=== PATIENT | female | born 1965 ===

== ENCOUNTER 2018-02-06 21:45 | Emergency (ER) | payer BC ==
--- NOTE | 2018-02-06 22:11 | EDM.PDOC ---
ED HPI GENERAL MEDICAL PROBLEM - General Chief Complaint: Upper Extremity Injury/Pain Stated Complaint: PAIN LT WRIST Time Seen by Provider: 02/06/18 22:02 Source of Information: Reports: Patient History Limitations: Reports: No Limitations - History of Present Illness INITIAL COMMENTS - FREE TEXT/NARRATIVE: HISTORY AND PHYSICAL: History of present illness: [Patient comes to the emergency room complaining of left wrist pain. She states that she was dancing in her kitchen this evening when she fell landing on her left wrist. Complains of immediate pain and swelling. She's noticed deformity to her left wrist. Occurred 1 hour prior to arrival in the ER. She has not taken any medication for her pain. Admits to drinking 3-4 alcoholic beverages this evening. History of HTN.] Review of systems: As per history of present illness and below otherwise all systems reviewed and negative. Past medical history: As per history of present illness and as reviewed below otherwise noncontributory. Surgical history: As per history of present illness and as reviewed below otherwise noncontributory. Social history: No reported history of drug or alcohol abuse. Family history: As per history of present illness and as reviewed below otherwise noncontributory. Physical exam: HEENT: Atraumatic, normocephalic. Extremities: Deformity appreciated to dorsum of left wrist. Is tender with palpation. Mild swelling and bruising noted. Cap refill less than 2 seconds. Has full motor Atraumatic, negative for cords or calf pain. Neurovascular unremarkable. Neuro: Awake, alert, oriented. Motor and sensory unremarkable throughout. Exam nonfocal. Diagnostics: [Left wrist x-ray] Impression: [L radial head fracture] Plan: [Patient is placed in a thumb spica splint that is made by the RN using Ortho- Glass. Encouraged patient to alternate Tylenol with ibuprofen as needed for discomfort, rest, ice and elevation. Referral is made to local orthopedic clinic. She is offered a referral to orthopedist in [place] as our local orthopedic surgeon is out of the office for the next several days. She declines stating she would like to follow-up locally. She declines prescription for hydrocodone.] Definitive disposition and diagnosis as appropriate pending reevaluation and review of above. left wrist Pain Score (Numeric/FACES): 6 - Related Data Allergies Allergy/AdvReac Type Severity Reaction Status Date / Time No Known Allergies Allergy Verified 02/06/18 21:54 Home Meds: Home Meds Fish Oil/[place]-3 Fatty Acids [Fish Oil 1,000 MG] 2 tab PO DAILY 11/07/15 [ History] Multivitamin [One Daily] 1 tab PO DAILY 11/07/15 [History] amLODIPine Besylate/Benazepril [Amlodipine-Benazepril 10-20 MG] 1 tab PO DAILY 11/07/15 [History] Past Medical History HEENT History: Reports: None Cardiovascular History: Reports: Hypertension Respiratory History: Reports: None Genitourinary History: Reports: None NEON GLASS BLOWER History: Reports: None Musculoskeletal History: Reports: None Neurological History: Reports: None Psychiatric History: Reports: None Endocrine/Metabolic History: Reports: Obesity/BMI 30+ Hematologic History: Reports: None Immunologic History: Reports: None Oncologic (Cancer) History: Reports: None Dermatologic History: Reports: None - Infectious Disease History Infectious Disease History: Reports: Mumps - Past Surgical History Head Surgeries/Procedures: Reports: None HEENT Surgical History: Reports: None GI Surgical History: Reports: Bariatric Procedure Social & Family History - Family History Family Medical History: Noncontributory - Tobacco Use Smoking Status *Q: Never Smoker - Alcohol Use Days Per Week of Alcohol Use: 2 Number of Drinks Per Day: 3 Total Drinks Per Week: 6 - Recreational Drug Use Recreational Drug Use: No Review of Systems - Review of Systems Review Of Systems: ROS reveals no pertinent complaints other than HPI. ED EXAM, GENERAL - Physical Exam Exam: See Below Course - Vital Signs Last Recorded V/S: Last Vital Signs Temp 96.8 F 02/06/18 21:52 Pulse 70 02/06/18 21:52 Resp 16 02/06/18 21:52 BP 127/57 L 02/06/18 21:52 Pulse Ox 98 02/06/18 21:52 - Orders/Labs/Meds Orders: Active Orders 24 hr Category Date Time Status Wrist Comp Min 3V Lt [CR] Stat Exams 02/06/18 22:02 Taken Departure - Departure Time of Disposition: 22:40 Disposition: Home, Self-Care 01 Condition: Good Clinical Impression: Closed fracture of radius - Discharge Information Referrals: Bobbi Silverio DO [Primary Care Provider] - Forms: ED Department Discharge Additional Instructions: The following information is given to patients seen in the emergency department who are being discharged to home. This information is to outline your options for follow-up care. We provide all patients seen in our emergency department with a follow-up referral. The need for follow-up, as well as the timing and circumstances, are variable depending upon the specifics of your emergency department visit. If you don't have a primary care physician on staff, we will provide you with a referral. We always advise you to contact your personal physician following an emergency department visit to inform them of the circumstance of the visit and for follow-up with them and/or the need for any referrals to a consulting specialist. The emergency department will also refer you to a specialist when appropriate. This referral assures that you have the opportunity for follow-up care with a specialist. All of these measure are taken in an effort to provide you with optimal care, which includes your follow-up. Under all circumstances we always encourage you to contact your private physician who remains a resource for coordinating your care. When calling for follow-up care, please make the office aware that this follow-up is from your recent emergency room visit. If for any reason you are refused follow-up, please contact the [facility] emergency department at and asked to speak to the emergency department charge nurse. [facility] Professional Building [address] [place] [address], [address] [place] [address] Call the above clinic Thursday morning to schedule follow-up appointment for the next couple of days. Tylenol alternating with ibuprofen as needed for discomfort, rest, ice, elevation. Return to ER as needed as discussed.
[2018-02-06 23:07] VITALS: BP 112/73
--- NOTE | 2018-02-08 12:05 | CR ---
EXAM DATE: 02/06/18 PATIENT'S AGE: 52 Patient: MICHEL ELLISON Facility: [place], [place] Site . Site : 1965 Study: XRay Extremity Left WRIST [id number] 10:28:39 PM Ordering Physician: Doctor Camara Final Report: INDICATION: Fall today onto left wrist, pain since TECHNIQUE: Wrist radiograph 3 views left COMPARISON: None FINDINGS: Bones: A comminuted intra-articular fracture of the distal radius is present. The distal radial articular surface is angulated dorsally by 38 degrees. Joints: The radiocarpal, carpal, and carpometacarpal joints are unremarkable in appearance. Soft tissues: Unremarkable. No radiopaque foreign bodies are seen. IMPRESSION: 1. A comminuted intra-articular fracture of the distal radius is present. The distal radial articular surface is angulated dorsally by 38 degrees. Dictated by Raymundo Nunez MD @ 02/06/2018 10:50:07 PM Dictated by: Raymundo Nunez MD @ 02/06/2018 22:50:12 (Electronic Signature) Report Signed by Proxy. BELLA
== END 2018-02-06 23:00 | disposition home or self-care (01) ==
LOC: MW.ED 21:45
DX: S52.122A Displaced fracture of head of left radius, initial encounter for closed fracture (principal); E66.9 Obesity, unspecified; I10 Essential (primary) hypertension; Z98.84 Bariatric surgery status; W18.30XA Fall on same level, unspecified, initial encounter; Y93.41 Activity, dancing; Z79.899 Other long term (current) drug therapy; Z68.38 Body mass index [BMI] 38.0-38.9, adult
CPT/HCPCS: 29125; 73110; 99283; A4566

== ENCOUNTER 2018-02-15 07:25 | Day surgery (SDC) | payer BC ==
[~2018-02-15 07:25] MED LIST: Lactated Ringers 1,000 ML IV SCH
[2018-02-15] MEDS ORDERED: Bupivacaine 0.5% 10 ML SDV ONE (07:39)
[2018-02-15] MEDS ORDERED: Acetaminophen/HYDROcodone 325-5 MG Tab PO PRN (08:00)
[2018-02-15] MEDS ORDERED: ceFAZolin 2 GM in Premix Bag 1 BAG IV SCH (08:00)
[2018-02-15] MEDS ORDERED: Propofol 200 MG/20 ML SDV ONE (08:20)
[2018-02-15] MEDS ORDERED: Midazolam 1 MG/ML 2 ML SDV ONE (08:20)
[2018-02-15] MEDS ORDERED: Dexamethasone 4 MG/ML 5 ML MDV ONE (08:20)
[2018-02-15] MEDS ORDERED: fentaNYL 250 MCG/5 ML SDV ONE (08:20)
[2018-02-15] MEDS ORDERED: Ondansetron 4 MG/2 ML SDV ONE (08:20)
[2018-02-15] MEDS ORDERED: ceFAZolin/Dextrose,Iso-Osmotic 2 GM/50 ML Duplex Bag IV ONE (08:35)
--- NOTE | 2018-02-15 09:08 | PCM.PREANE ---
Preanesthetic Assessment - Anesthesia/Transfusion/Family Hx Anesthesia History: Prior Anesthesia Without Reaction Transfusion History: No Prior Transfusion(s) - Review of Systems General: No Symptoms Pulmonary: No Symptoms Cardiovascular: No Symptoms Gastrointestinal: No Symptoms Neurological: No Symptoms Other: Reports: None - Physical Assessment NPO Status Date: 02/14/18 NPO Status Time: 22:00 O2 Sat by Pulse Oximetry: 97 Respiratory Rate: 16 Vital Signs: Last Vital Signs Temp 98.1 F 02/15/18 07:51 Pulse 61 02/15/18 07:51 Resp 16 02/15/18 07:51 BP 144/97 H 02/15/18 07:51 Pulse Ox 97 02/15/18 07:51 Height: 5 ft 8 in Weight: 102.058 kg ASA Class: 2 Mental Status: Alert & Oriented x3 Airway Class: Mallampati = 2 Dentition: Reports: Normal Dentition Thyro-Mental Finger Breadths: 3 Mouth Opening Finger Breadths: 3 ROM/Head Extension: Full Lungs: Clear to Auscultation, Normal Respiratory Effort Cardiovascular: Regular Rate, Regular Rhythm - Lab Values: Laboratory Last Values Urine HCG, Qual NEGATIVE (NEGATIVE) 02/15/18 07:29 - Allergies Allergies/Adverse Reactions: Allergies Allergy/AdvReac Type Severity Reaction Status Date / Time No Known Allergies Allergy Verified 02/10/18 14:36 - Acknowledgements Anesthesia Type Planned: General Anesthesia (ETT) Pt an Appropriate Candidate for the Planned Anesthesia: Yes Alternatives and Risks of Anesthesia Discussed w Pt/Guardian: Yes Pt/Guardian Understands and Agrees with Anesthesia Plan: Yes PreAnesthesia Questionnaire HEENT History: Other HEENT History: wears glasses Cardiovascular History: Reports: Hypertension (Rx controlled) Respiratory History: Reports: None Gastrointestinal History: Reports: None Genitourinary History: Reports: None AIR/OCEAN EXPORT CLERK History: Reports: None Musculoskeletal History: Reports: None Neurological History: Reports: None Psychiatric History: Reports: None Endocrine/Metabolic History: Reports: Obesity/BMI 30+ Hematologic History: Reports: None Immunologic History: Reports: None Oncologic (Cancer) History: Reports: None Dermatologic History: Reports: Other (See Below) Other Dermatologic History: rosacea - Infectious Disease History Infectious Disease History: Reports: Mumps - Past Surgical History Head Surgeries/Procedures: Reports: None HEENT Surgical History: Reports: None GI Surgical History: Reports: Bariatric Procedure (Gastric Bypass), Colonoscopy Female Surgical History: Reports: Breast Implant Other Female Surgeries/Procedures: lala breast augmentation - SUBSTANCE USE Smoking Status *Q: Former Smoker Tobacco Use Within Last Twelve Months: No Days Per Week of Alcohol Use: 2 Number of Drinks Per Day: 3 Total Drinks Per Week: 6 Recreational Drug Use History: No - HOME MEDS Home Medications: Home Meds Fish Oil/[place]-3 Fatty Acids [Fish Oil 1,000 MG] 2 tab PO DAILY 11/07/15 [ History] Multivitamin [One Daily] 1 tab PO DAILY 11/07/15 [History] amLODIPine Besylate/Benazepril [Amlodipine-Benazepril 10-20 MG] 1 tab PO DAILY 11/07/15 [History] metroNIDAZOLE [metroNIDAZOLE 0.75% Gel] 1 applic TOP ASDIRECTED 02/10/18 [ History] - CURRENT (IN HOUSE) MEDS Current Meds: Current Medications Hydrocodone Bitart/Acetaminophen ([place] 325-5 Mg) 1 - 2 tab PO Q4H PRN PRN Reason: Pain Cefazolin Sodium/Dextrose 2 gm (/ Premix) 50 mls @ 100 mls/hr IV ONCALL LARRY Lactated Ringer's (Ringers, Lactated) 1,000 mls @ 100 mls/hr IV ASDIRECTED [facility] Last Admin: 02/15/18 07:49 Dose: 100 mls/hr Discontinued Medications Bupivacaine HCl (Sensorcaine-Mpf 0.5%) Confirm Administered Dose 10 ml .ROUTE .STK-MED ONE Stop: 02/15/18 07:40 Cefazolin Sodium/Dextrose (Ancef) Confirm Administered Dose 2 gm IV .STK-MED ONE Stop: 02/15/18 08:36 Dexamethasone (Dexamethasone) Confirm Administered Dose 20 mg .ROUTE .STK-MED ONE Stop: 02/15/18 08:21 Fentanyl (Sublimaze) Confirm Administered Dose 250 mcg .ROUTE .STK-MED ONE Stop: 02/15/18 08:21 Lidocaine HCl (Xylocaine-Mpf 1%) Confirm Administered Dose 5 ml .ROUTE .STK-MED ONE Stop: 02/15/18 08:21 Midazolam HCl (Versed 1 Mg/Ml) Confirm Administered Dose 2 mg .ROUTE .STK-MED ONE Stop: 02/15/18 08:21 Ondansetron HCl (Zofran) Confirm Administered Dose 4 mg .ROUTE .STK-MED ONE Stop: 02/15/18 08:21 Propofol (Diprivan 20 Ml) Confirm Administered Dose 200 mg .ROUTE .STK-MED ONE Stop: 02/15/18 08:21
[2018-02-15] MEDS ORDERED: Succinylcholine 200 MG/10 ML MDV ONE (09:10)
[2018-02-15] MEDS ORDERED: Rocuronium 10 MG/ML 10 ML Syringe ONE (09:10)
[2018-02-15] MEDS ORDERED: HYDROmorphone 2 MG/ML SDV ONE (11:36)
--- NOTE | 2018-02-15 11:47 | PCM.OPNOTE ---
- General Post-Op/Procedure Note Date of Surgery/Procedure: 02/15/18 Operative Procedure(s): ORIF left distal radius, 4 part Post-Op Diagnosis: left distal radius fracture, 4 part intra-articular Anesthesia Technique: General ET Tube Primary Surgeon: Radha Mayberry Hydrogen Treater: Ángela Gandhi in mLs: 10 Condition: Good Free Text/Narrative:: tt=64 min #[id number]
[2018-02-15] MEDS: fentaNYL 100 MCG/2 ML SDV IVPUSH PRN ×4 (12:10→12:36)
--- NOTE | 2018-02-15 12:22 | PCM.POSTAN ---
POST ANESTHESIA ASSESSMENT - MENTAL STATUS Mental Status: Alert, Oriented - RESPIRATORY Respiratory Status: Respiratory Rate WNL, Airway Patent, O2 Saturation Stable - CARDIOVASCULAR CV Status: Pulse Rate WNL, Blood Pressure Stable - GASTROINTESTINAL GI Status: No Symptoms - POST OP HYDRATION Hydration Status: Adequate & Stable
[2018-02-15] MEDS ORDERED: Acetaminophen 1,000 MG in Premix Bag 1 BAG IV ONE (12:53)
--- NOTE | 2018-02-15 13:39 | PCM48HPAN ---
Post Anesthesia Note - EVALUATION WITHIN 48HRS OF ANESTHETIC Vital Signs in Normal Range: Yes Patient Participated in Evaluation: Yes Respiratory Function Stable: Yes Airway Patent: Yes Cardiovascular Function Stable: Yes Hydration Status Stable: Yes Pain Control Satisfactory: Yes Nausea and Vomiting Control Satisfactory: Yes Mental Status Recovered: Yes Resp Rate: 14
[2018-02-15 14:43] VITALS: BP 143/79
--- NOTE | 2018-02-15 16:31 | CR ---
EXAMINATION: Left wrist HISTORY: ORIF COMPARISON: CT dated 02/09/2018 TECHNIQUE: 4 views FINDINGS/IMPRESSION: Screw and plate hardware is noted fixating a distal radius fracture. Position an d alignment appear near anatomic.
--- NOTE | 2018-02-16 08:15 | OR ---
SURGEON: Radha Mayberry MD DATE OF PROCEDURE: 02/15/2018 PREOPERATIVE DIAGNOSIS: Left distal radius fracture, 4 part, intra-articular. POSTOPERATIVE DIAGNOSIS: Left distal radius fracture, 4 part, intra-articular. PROCEDURE: Open reduction and internal fixation left 4 part intra-articular distal radius fracture. SECURITY INTELLIGENCE ANALYST: Ángela Gandhi PA-C ANESTHESIA: General. ESTIMATED BLOOD LOSS: 10 mL. TOURNIQUET TIME: 64 minutes. COMPLICATIONS: None. DVT PROPHYLAXIS: PAS boots to bilateral lower extremities. IMPLANTS USED: See implant record. BRIEF HISTORY: Shaina is a 52-year-old right-hand dominant female, who injured her left wrist after falling. X-rays and CT scan showed a comminuted intra-articular fracture of the left distal radius with shortening and angulation. Due to the position of the fracture, I did recommend surgical intervention. The risks and goals of procedure were discussed with the patient and were documented preoperatively. She agreed to proceed. DESCRIPTION OF PROCEDURE: The patient was properly identified and brought to the operating room. She was transferred from the OR cart and placed on the operating table in supine position. General anesthesia was administered. After adequate anesthesia was obtained, a well-padded tourniquet was applied to the left upper extremity. The left upper extremity was then prepped in standard fashion using ChloraPrep solution. It was then sterilely draped. A time-out was performed to ensure correct site and procedure. Preoperative antibiotics were given. The surgical site had been marked preoperatively. An Esmarch was used to exsanguinate the left upper extremity and the tourniquet was inflated to 200 mmHg. An incision was made over the volar aspect of the wrist, centered over the FCR tendon. Subcutaneous tissues were incised. Electrocautery was used to maintain hemostasis. The FCR tendon was incised. It was brought in a radial direction. The floor of the tendon sheath was then incised. The FPL was identified and retracted. The pronator quadratus was identified. This had been damaged, due to the position of the fracture. The pronator was incised along the radial border. A periosteal elevator was used to remove the pronator from the bone. The fracture was identified. It was opened, and saline was used to copiously irrigate and remove the fracture hematoma. A [place] elevator was then placed into the fracture site, and the dorsal angulation was improved. C-arm was used to guide positioning. We were able to bring the radius out to length as well. There was some comminution at the radial styloid, which had been noted on the preoperative CT scan. A K-wire was passed into the radial styloid. This was then reduced and passed past the fracture site. Good provisional fixation was obtained in both the AP and lateral planes. The wide short plate was then placed along the volar aspect of the distal radius. Its position was held in place with K-wires. Its position was checked in both AP and lateral planes and felt to be acceptable. A 2.7 mm nonlocking screw was placed in the oblong hole proximally. The distal screw hole was then drilled. This was placed in a subchondral position. Prior to final tightening of the locking distal screw, the proximal screw was released. This allowed the distal fragment to be pulled to the plate to improve the dorsal angulation. The distal screw was then tightened, followed by the proximal one. The position of the fracture was again checked in the AP and lateral planes and felt to be acceptable. The radial styloid was then held in a reduced position, as the radial styloid screw was passed. We were able to get good purchase within the radial styloid with good reapproximation of the position of the radial styloid. The remainder of the distal holes were filled using locking screws. I chose not to place a screw along the proximal and ulnar aspect of the plate, as I did not want to cause any impingement on the sigmoid notch. 2.7 mm nonlocking screws were also placed proximally to finish the fixation. Final C-arm images confirmed acceptable reduction of the fracture with good caodaism of the radial length and inclination. The dorsal tilt was improved to a neutral position. Screw lengths appeared appropriate. Provisional K-wire fixation was removed. The wound was then copiously irrigated with saline solution. The pronator quadratus was closed over the plate using 0 Vicryl. The tourniquet was then deflated. No significant bleeding was noted. 3-0 Vicryl was used to close the subcutaneous tissues and the skin was closed with a running 4-0 Monocryl suture. Steri- Strips and Benzoin were placed. Xeroform gauze was placed over the wound, and a bulky dressing was applied. She was placed in a well-padded volar splint. She was awakened from her anesthetic and transferred back to the operating room cart. She was brought to recovery room in stable condition. All needle and sponge counts were correct. INDERJIT / GABRIEL /[id number]
== END 2018-02-15 14:08 | disposition home or self-care (01) ==
LOC: MW.SDS 07:25
PROVIDERS: ATTEND Orthopaedic Surgery
DX: S52.572A Other intraarticular fracture of lower end of left radius, initial encounter for closed fracture (principal); I10 Essential (primary) hypertension; E66.9 Obesity, unspecified; W19.XXXA Unspecified fall, initial encounter; Z79.899 Other long term (current) drug therapy; Z68.34 Body mass index [BMI] 34.0-34.9, adult; Z98.84 Bariatric surgery status; Z87.891 Personal history of nicotine dependence
CPT/HCPCS: 25609; 76000; 81025; J0330; J0690; J1100; J1170; J2250; J2405; J3010; J7120; 01830; C1713; J2704

== ENCOUNTER 2019-08-29 08:28 | Emergency (ER) | payer BC ==
--- NOTE | 2019-08-29 08:37 | EDM.PDOC ---
ED HPI GENERAL MEDICAL PROBLEM - General Stated Complaint: WOUND ON LT LEG Time Seen by Provider: 08/29/19 08:48 Source of Information: Reports: Patient History Limitations: Reports: No Limitations - History of Present Illness INITIAL COMMENTS - FREE TEXT/NARRATIVE: HISTORY AND PHYSICAL: History of present illness: Patient is a 54-year-old female who presents to the emergency room with complaints of an open sore to her left posterior thigh. She states over the past several years she has noticed a small lipoma or cyst to the left posterior thigh, site where she now has an open sore. She states that she has had a provider looked at. Lipoma previously and states there was no concern with this. She states over the past couple weeks she thought that the area appeared semi-reddened in appearance and thought that it looked like it was "coming to a head". Over the past few days she noticed almost an abscess-like appearance and it had "busted on its own" yesterday. The site has been draining serosanguineous fluid and does not appear to be improving. She tried to call her primary care provider but was not able to get in in a timely manner. Patient denies any fever, chills, headache, change in vision, syncope or near syncope. Denies any chest pain, back pain, shortness of breath or cough. Denies any abdominal pain, nausea, vomiting, diarrhea, constipation or dysuria. Has not noted any blood in urine or stool. Patient has been eating and drinking appropriately. Patient states she is otherwise healthy and has no past medical history of MRSA or diabetes. Review of systems: As per history of present illness and below otherwise all systems reviewed and negative. Past medical history: As per history of present illness and as reviewed below otherwise noncontributory. Surgical history: As per history of present illness and as reviewed below otherwise noncontributory. Social history: See social history for further information Family history: As per history of present illness and as reviewed below otherwise noncontributory. Physical exam: General: Well-developed and well-nourished 54-year-old female. Alert and oriented. Nontoxic appearing and in no acute distress. HEENT: Atraumatic, normocephalic, pupils equal and reactive bilaterally, negative for conjunctival pallor or scleral icterus, mucous membranes moist, trachea midline. No drooling or trismus noted. No meningeal signs. No hot potato voice noted. Lungs: Clear to auscultation, breath sounds equal bilaterally, chest nontender. Heart: S1S2, regular rate and rhythm without overt murmur Abdomen: Soft, nondistended, nontender. Skin: Open sore approximately size of 50 cent piece. There is noted some serosanguineous fluid drainage. The underlying tissue is semifirm and nonfluctuant. No surrounding erythema. Otherwise skin is Intact, warm, dry. No lesions or rashes noted. Extremities: Atraumatic, moves all extremities per self without difficulty or deficits, negative for cords or calf pain. Neurovascular unremarkable. Neuro: Awake, alert, oriented. Cranial nerves II through XII unremarkable. Cerebellum unremarkable. Motor and sensory unremarkable throughout. Exam nonfocal. Notes: I did have Dr Patterson look at this open sore as well. We'll place patient on Bactrim DS and set her up a follow-up appointment with her primary care provider. We discussed signs and symptoms that would prompt him to return to the emergency room. Supportive care measures were reviewed and discussed. Voices understanding and is agreeable to plan of care. Denies any further questions or concerns at this time. Diagnostics: X-ray Therapeutics: Wound care Prescription: Bactrim Impression: Open wound of the skin Plan: 1. Keep the area clean and dry. Continue to monitor for signs of improvement. Wash gently with mild soap and water twice daily.. 2. Tylenol and/or ibuprofen as needed for pain management. 3. Please follow-up with Dr Mills on Thursday at 0900am. Return to the ED as needed and as discussed. Definitive disposition and diagnosis as appropriate pending reevaluation and review of above. - Related Data Allergies Allergy/AdvReac Type Severity Reaction Status Date / Time No Known Allergies Allergy Verified 08/29/19 08:44 Home Meds: Home Meds . [No Known Home Meds] 08/29/19 [History] Sulfamethoxazole/Trimethoprim [Bactrim Ds Tablet] 1 each PO BID 10 Days #20 tablet 08/29/19 [Rx] Past Medical History HEENT History: Other HEENT History: wears glasses Cardiovascular History: Reports: Hypertension (Rx controlled) Respiratory History: Reports: None Gastrointestinal History: Reports: None Genitourinary History: Reports: None [employer]ER PLUM[employer]ING History: Reports: None Musculoskeletal History: Reports: None Neurological History: Reports: None Psychiatric History: Reports: None Endocrine/Metabolic History: Reports: Obesity/BMI 30+ Hematologic History: Reports: None Immunologic History: Reports: None Oncologic (Cancer) History: Reports: None Dermatologic History: Reports: Other (See Below) Other Dermatologic History: rosacea - Infectious Disease History Infectious Disease History: Reports: Mumps - Past Surgical History Head Surgeries/Procedures: Reports: None HEENT Surgical History: Reports: None GI Surgical History: Reports: Bariatric Procedure (Gastric Bypass), Colonoscopy Female Surgical History: Reports: Breast Implant Other Female Surgeries/Procedures: lala breast augmentation Social & Family History - Family History Family Medical History: Noncontributory Review of Systems - Review of Systems Review Of Systems: ROS reveals no pertinent complaints other than HPI. ED EXAM, GENERAL - Physical Exam Exam: See Below (See dictation) Course - Vital Signs Last Recorded V/S: Last Vital Signs Temp 96.4 F 08/29/19 08:41 Pulse 87 08/29/19 08:41 Resp 16 08/29/19 08:41 BP 168/95 H 08/29/19 08:41 Pulse Ox 99 08/29/19 08:41 Departure - Departure Time of Disposition: 08:53 Disposition: Home, Self-Care 01 Clinical Impression: Open wound of skin - Discharge Information Prescriptions: Sulfamethoxazole/Trimethoprim [Bactrim Ds Tablet] 1 each PO BID 10 Days #20 tablet Instructions: Skin Abscess, [id number] Referrals: Bobbi Silverio DO [Primary Care Provider] - Carmencita Mills MD [Ordering Only Provider] - 2 Days (Please keep follow up appointment on ThursdayAugust 31 at 9am. Arrive by 8:45am to get registered. Appointment will be on second floor) Forms: ED Department Discharge Additional Instructions: The following information is given to patients seen in the emergency department who are being discharged to home. This information is to outline your options for follow-up care. We provide all patients seen in our emergency department with a follow-up referral. The need for follow-up, as well as the timing and circumstances, are variable depending upon the specifics of your emergency department visit. If you don't have a primary care physician on staff, we will provide you with a referral. We always advise you to contact your personal physician following an emergency department visit to inform them of the circumstance of the visit and for follow-up with them and/or the need for any referrals to a consulting specialist. The emergency department will also refer you to a specialist when appropriate. This referral assures that you have the opportunity for follow-up care with a specialist. All of these measure are taken in an effort to provide you with optimal care, which includes your follow-up. Under all circumstances we always encourage you to contact your private physician who remains a resource for coordinating your care. When calling for follow-up care, please make the office aware that this follow-up is from your recent emergency room visit. If for any reason you are refused follow-up, please contact the [facility] Emergency Department at and asked to speak to the emergency department charge nurse. [facility] [address] [place], [place] [id number] [place] [address] 1. Keep the area clean and dry. Continue to monitor for signs of improvement. Wash gently with mild soap and water twice daily.. 2. Tylenol and/or ibuprofen as needed for pain management. 3. Please follow-up with your primary care provider in the next 1-2 days. Return to the ED as needed and as discussed.
[2019-08-29 08:54] VITALS: BP 168/95; PULSE 87
--- NOTE | 2019-08-29 10:14 | CR ---
INDICATION: Posterior distal abscess. Check for air. TECHNIQUE: AP and lateral views of the left femur, 3 images. COMPARISON: None. FINDINGS: No focal soft tissue swelling or soft tissue air. No periosteum reaction, erosive change or other bony abnormality. IMPRESSION: Negative left femur. Dictated by Abisai Ashley MD @ Aug 29 2019 10:10AM Signed by Dr. Abisai Ashley @ Aug 29 2019 10:11AM
== END 2019-08-29 09:25 | disposition home or self-care (01) ==
LOC: MW.ED 08:28
DX: S71.102A Unspecified open wound, left thigh, initial encounter (principal); I10 Essential (primary) hypertension; E66.9 Obesity, unspecified; X58.XXXA Exposure to other specified factors, initial encounter
CPT/HCPCS: 73552-26-LT; 73552-LT; 99283; 99283-25